=== PATIENT | female | born 1935 | race Caucasian/White ===

== ENCOUNTER 2017-04-21 10:46 | Inpatient (IN) ==
[2017-04-21 11:55] LABS: URINE CULTURE NEEDED? NO; URINE MICRO REVIEW NEEDED? NO; URINE SOURCE CLEAN CATCH
[2017-04-21 11:59] LABS: BASO% 0.1 % (0.0-0.8); HEMATOCRIT 42.1 % (37.0-47.0); HEMOGLOBIN 13.4 g/dL (12.0-16.0); IMM GRAN# 0.03 X1000 (0.0-0.04); IMM GRAN% 0.2 % (0.0-0.5); LYMPH% 7.7 % (20.5-51.1); MANUAL DIFF NEEDED? NO; MCH 28.8 PG (27-31); MCHC 31.8 g/dL (33-37); MCV 90.5 FL (81-99); MONO# 0.49 X1000 (0.11-0.59); MONO% 3.8 % (1.7-9.3); MPV 10.3 FL (7.4-10.4); NEUT% 88.2 % (42.2-75.2); PLT 302 X1000 (130-400); RBC 4.65 XMIL (4.2-5.4)
[2017-04-21 12:00] LABS: BILIRUBIN URINE NEGATIVE (NEGATIVE); BLOOD URINE NEGATIVE (NEGATIVE); COLOR YELLOW; GLUCOSE URINE NEGATIVE (NEGATIVE); LEUKOCYTES URINE NEGATIVE (NEGATIVE); NITRITE URINE NEGATIVE (NEGATIVE); PH URINE 5.5; PROTEIN URINE 50 mg/dL (NEGATIVE); SP GRAVITY URINE 1.026; TURBIDITY URINE CLEAR (CLEAR); UROBILINOGEN URINE 2 mg/dL (NORMAL)
[2017-04-21 12:01] LABS: UR EPITHELIAL CELLS <10 /HPF (<10); URINE BACTERIA NEGATIVE /HPF; URINE RBC <10 /HPF (<10); URINE WBC <10 /HPF (<10)
[2017-04-21] MEDS ORDERED: MORPHINE IV ONE (12:10)
[2017-04-21] MEDS ORDERED: ZOFRAN IV ONE ×2 (12:11→14:43)
[2017-04-21] MEDS ORDERED: NS 250 ML IV ONE (12:11)
[2017-04-21 12:18] LABS: ALBUMIN 3.8 g/dL (3.5-5.0); CALCIUM 10.4 mg/dL (8.8-10.2); POTASSIUM 3.7 mmol/L (3.5-5.1); TOTAL BILIRUBIN 0.39 mg/dL (0.20-1.00); TOTAL PROTEIN 7.6 g/dL (6.3-8.3)
[2017-04-21] MEDS ORDERED: ZOSYN 3.375 GM in NS 50 ML IV ONE (12:40)
[2017-04-21] MEDS ORDERED: DILAUDID IV ONE (14:43)
[2017-04-21] MEDS ORDERED: DILAUDID ONE (15:04)
[2017-04-21] MEDS: LOVENOX SUBQ SCH (18:23)
[2017-04-21] MEDS ORDERED: ELIQUIS PO SCH (21:00)
[2017-04-21] MEDS: CORDARONE PO SCH (22:00)
[2017-04-21] MEDS: D5 1/2 NS + KCL 20 MEQ 1,000 ML IV SCH (22:05)
[2017-04-21] MEDS: COMBIGAN OPHTH SOLN BOTH EYES SCH (22:05)
[2017-04-22] MEDS ORDERED: DEMEROL IV PRN (02:50)
[2017-04-22] MEDS: ZOFRAN IV PRN (02:58)
[2017-04-22 05:52] LABS: INR 1.01; PROTIME 10.6 Seconds (9.2-11.7)
[2017-04-22 06:04] LABS: AMYLASE 342 U/L (20-200); LIPASE 263 U/L (13-60)
[2017-04-22 06:05] LABS: ALBUMIN 3.8 g/dL (3.5-5.0); CALCIUM 9.5 mg/dL (8.8-10.2); POTASSIUM 4.2 mmol/L (3.5-5.1); TOTAL BILIRUBIN 0.39 mg/dL (0.20-1.00); TOTAL PROTEIN 7.3 g/dL (6.3-8.3)
[2017-04-22] MEDS: PROTONIX PO SCH (06:06)
[2017-04-22 06:08] LABS: HEMATOCRIT 41.1 % (37.0-47.0); HEMOGLOBIN 13.2 g/dL (12.0-16.0); IMM GRAN# 0.04 X1000 (0.0-0.04); IMM GRAN% 0.4 % (0.0-0.5); LYMPH# 0.93 X1000 (1.2-3.4); LYMPH% 8.4 % (20.5-51.1); MANUAL DIFF NEEDED? YES; MCH 29.6 PG (27-31); MCHC 32.1 g/dL (33-37); MCV 92.2 FL (81-99); MONO# 0.58 X1000 (0.11-0.59); MONO% 5.2 % (1.7-9.3); MPV 10.6 FL (7.4-10.4); PLT 232 X1000 (130-400); RBC 4.46 XMIL (4.2-5.4)
[2017-04-22] MEDS: DILAUDID IV PRN (06:56)
[2017-04-22 07:06] LABS: LYMPHS 5 % (21-51); MONO 2 % (1-9)
[2017-04-22] MEDS: LOPRESSOR PO SCH (09:22)
[2017-04-22] MEDS: COMBIGAN OPHTH SOLN BOTH EYES SCH ×2 (09:22→22:53)
[2017-04-22] MEDS: CORDARONE PO SCH ×2 (09:22→22:51)
[2017-04-22] MEDS: D5 1/2 NS + KCL 20 MEQ 1,000 ML IV SCH ×2 (09:24→22:54)
[2017-04-22] MEDS ORDERED: FENTANYL ONE (12:21)
[2017-04-22] MEDS ORDERED: SODIUM CHLORIDE 0.9% 20 ML ONE (12:30)
[2017-04-22] MEDS ORDERED: MARCAINE 0.25% PF ONE (12:30)
[2017-04-22] MEDS ORDERED: EXPAREL 1.3% ONE (12:31)
[2017-04-22] MEDS ORDERED: KEFZOL 1 GM/D5W 1 GM/50 ML IVPB ONE (12:37)
[2017-04-22] MEDS ORDERED: QUELICIN (DOSE) ONE (13:28)
[2017-04-22] MEDS ORDERED: ZOFRAN ONE (13:28)
[2017-04-22] MEDS ORDERED: OFIRMEV 1000 MG/ISOTONIC SOLN 1,000 MG/100 ML BOTTLE ONE (13:28)
[2017-04-22] MEDS ORDERED: NEO-SYNEPHRINE ONE (13:28)
[2017-04-22] MEDS ORDERED: NORCURON ONE (13:28)
[2017-04-22] MEDS ORDERED: STERILE WATER INJ. ONE (13:28)
[2017-04-22] MEDS ORDERED: AMIDATE ONE (13:29)
[2017-04-22] MEDS ORDERED: XYLOCAINE-MPF 2% ONE (13:29)
[2017-04-22] MEDS ORDERED: NEOSTIGMINE ONE (13:29)
[2017-04-22] MEDS ORDERED: KETAMINE ONE (13:38)
[2017-04-22] MEDS ORDERED: EPHEDRINE ONE (13:54)
[2017-04-22] MEDS ORDERED: ALBUMIN 25% IV ONE (14:00)
[2017-04-22] MEDS ORDERED: DECADRON ONE (14:21)
[2017-04-22] MEDS ORDERED: ROBINUL ONE (15:01)
[2017-04-22] MEDS: PERIDEX MT SCH (22:52)
[2017-04-22] MEDS: LOVENOX SUBQ SCH (22:52)
[2017-04-23] MEDS: PROTONIX PO SCH (06:41)
[2017-04-23] MEDS: D5 1/2 NS + KCL 20 MEQ 1,000 ML IV SCH ×3 (09:30→22:37)
[2017-04-23] MEDS: PERIDEX MT SCH ×2 (10:21→22:38)
[2017-04-23] MEDS: COMBIGAN OPHTH SOLN BOTH EYES SCH ×2 (10:21→22:38)
[2017-04-23] MEDS: CORDARONE PO SCH ×2 (10:21→22:37)
[2017-04-23] MEDS: LOPRESSOR PO SCH (10:21)
[2017-04-23] MEDS ORDERED: NS 500 ML IV SCH (15:05)
[2017-04-23 16:25] LABS: ALBUMIN 2.2 g/dL (3.5-5.0); POTASSIUM 4.7 mmol/L (3.5-5.1); TOTAL BILIRUBIN 0.36 mg/dL (0.20-1.00); TOTAL PROTEIN 4.8 g/dL (6.3-8.3)
[2017-04-23 16:34] LABS: CALCIUM 8.1 mg/dL (8.8-10.2)
[2017-04-23] MEDS ORDERED: NS 500 ML IV ONE (16:53)
[2017-04-23] MEDS: LOVENOX SUBQ SCH (22:38)
[2017-04-24] MEDS: D5 1/2 NS + KCL 20 MEQ 1,000 ML IV SCH ×3 (05:28→23:24)
[2017-04-24] MEDS: PROTONIX PO SCH ×2 (05:28→10:04)
[2017-04-24 08:31] LABS: AMYLASE 66 U/L (20-200); LIPASE 10 U/L (13-60)
[2017-04-24 08:34] LABS: ALBUMIN 2.2 g/dL (3.5-5.0); CALCIUM 8.3 mg/dL (8.8-10.2); TOTAL BILIRUBIN 0.27 mg/dL (0.20-1.00); TOTAL PROTEIN 4.2 g/dL (6.3-8.3)
[2017-04-24 08:36] LABS: HEMATOCRIT 31.9 % (37.0-47.0); HEMOGLOBIN 9.9 g/dL (12.0-16.0); IMM GRAN# 0.05 X1000 (0.0-0.04); IMM GRAN% 0.4 % (0.0-0.5); LYMPH% 3.7 % (20.5-51.1); MANUAL DIFF NEEDED? YES; MCH 29.1 PG (27-31); MCV 93.8 FL (81-99); MONO# 1.02 X1000 (0.11-0.59); MONO% 7.5 % (1.7-9.3); MPV 10.5 FL (7.4-10.4); NEUT% 88.4 % (42.2-75.2); PLT 208 X1000 (130-400)
[2017-04-24 08:38] LABS: BANDS 10 % (0-1); LYMPHS 4 % (21-51); MONO 6 % (1-9)
[2017-04-24] MEDS: LOPRESSOR PO SCH (10:04)
[2017-04-24] MEDS: CORDARONE PO SCH ×2 (10:04→23:17)
[2017-04-24] MEDS: PERIDEX MT SCH (10:04)
[2017-04-24] MEDS: COMBIGAN OPHTH SOLN BOTH EYES SCH ×2 (10:04→23:18)
[2017-04-24] MEDS: LOVENOX SUBQ SCH (23:17)
[2017-04-25] MEDS: PROTONIX PO SCH (06:03)
[2017-04-25] MEDS: D5 1/2 NS + KCL 20 MEQ 1,000 ML IV SCH (06:03)
[2017-04-25] MEDS: PERIDEX MT SCH ×3 (06:04→20:26)
[2017-04-25] MEDS ORDERED: D5 1/2 NS + KCL 20 MEQ 1,000 ML IV SCH (07:24)
[2017-04-25] MEDS: COMBIGAN OPHTH SOLN BOTH EYES SCH ×2 (09:27→20:26)
[2017-04-25] MEDS: CORDARONE PO SCH (09:27)
[2017-04-25] MEDS: LOPRESSOR PO SCH (09:27)
[2017-04-25] MEDS ORDERED: CALCIUM CHLORIDE SYRINGE ONE (10:00)
[2017-04-25] MEDS ORDERED: EPINEPHRINE SYRINGE ONE (10:00)
[2017-04-25] MEDS ORDERED: CLINDAMYCIN 600 MG/NS 600 MG/50 ML IVPB IV ONE (11:22)
[2017-04-25] MEDS: ZOSYN 3.375 GM in NS 50 ML IV SCH ×2 (11:49→16:43)
[2017-04-25 11:58] LABS: CALCIUM 10.4 mg/dL (8.8-10.2); MAGNESIUM 2.1 mg/dL (1.5-2.7); POTASSIUM 5.8 mmol/L (3.5-5.1); TOTAL BILIRUBIN 0.36 mg/dL (0.20-1.00); TOTAL PROTEIN 4.8 g/dL (6.3-8.3)
[2017-04-25 12:01] LABS: BASO% 0.7 % (0.0-0.8); EOS# 0.01 X1000 (0.0-0.7); EOS% 0.1 % (0.0-10.0); HEMATOCRIT 33.3 % (37.0-47.0); HEMOGLOBIN 10.1 g/dL (12.0-16.0); IMM GRAN# 0.27 X1000 (0.0-0.04); IMM GRAN% 3.7 % (0.0-0.5); LYMPH# 1.29 X1000 (1.2-3.4); LYMPH% 17.8 % (20.5-51.1); MANUAL DIFF NEEDED? YES; MCH 29.3 PG (27-31); MCHC 30.3 g/dL (33-37); MCV 96.5 FL (81-99); MONO# 0.31 X1000 (0.11-0.59); MONO% 4.3 % (1.7-9.3); MPV 10.5 FL (7.4-10.4); NEUT% 73.4 % (42.2-75.2); PLT 178 X1000 (130-400); RBC 3.45 XMIL (4.2-5.4)
[2017-04-25] MEDS ORDERED: NEO-SYNEPHRINE IV ONE (12:26)
[2017-04-25 12:43] LABS: ALLEN TEST YES; BE -3.8 mmoll (-3.0-3.0); BLOOD TYPE ARTERIAL; DRAW SITE L RADIAL; O2(CT) 12.7 mL/dL (15.0-23.0); PCO2(98.6) 39 mmHg (35-45); PO2(98.6) 50 mmHg (60-100); SAMPLE BLOOD; SAO2 90.2 % (95.0-100.0); SRATE 14 BPM; THB 10.3 g/dL (11.5-17.4); TVOL 600 mL; pH(98.6) 7.35 (7.35-7.45)
[2017-04-25 12:45] LABS: MODALITY VENTILATOR
[2017-04-25 12:47] LABS: BANDS 16 % (0-1); LYMPHS 16 % (21-51)
[2017-04-25 12:48] LABS: HYPOCHROM 1+
[2017-04-25] MEDS: LEVOPHED 8 MG in D5 1/2 NS 250 ML IV SCH (12:50)
[2017-04-25] MEDS ORDERED: NEO-SYNEPHRINE 50 MG in NS 250 ML IV SCH (13:00)
[2017-04-25] MEDS: CLINDAMYCIN 600 MG/NS 600 MG/50 ML IVPB IV SCH ×2 (13:01→19:57)
[2017-04-25] MEDS ORDERED: LOVENOX SUBQ ONE (13:20)
[2017-04-25] MEDS ORDERED: LOVENOX SUBQ SCH (13:30)
[2017-04-25] MEDS: DUONEB (A & A) INH SCH ×3 (16:27→23:40)
[2017-04-25] MEDS: LOVENOX SUBQ SCH (16:44)
[2017-04-25 18:51] LABS: URINE SOURCE CATH
[2017-04-25 18:57] LABS: BILIRUBIN URINE NEGATIVE (NEGATIVE); BLOOD URINE LARGE (NEGATIVE); COLOR ORANGE; GLUCOSE URINE TRACE mg/dL (NEGATIVE); LEUKOCYTES URINE NEGATIVE (NEGATIVE); NITRITE URINE NEGATIVE (NEGATIVE); PROTEIN URINE 200 mg/dL (NEGATIVE); SP GRAVITY URINE 1.036; TURBIDITY URINE TURBID (CLEAR); UROBILINOGEN URINE NORMAL (NORMAL)
[2017-04-25 19:00] LABS: UR EPITHELIAL CELLS >10 /HPF (<10); URINE BACTERIA NEGATIVE /HPF; URINE CULTURE NEEDED? YES; URINE MICRO REVIEW NEEDED? YES; URINE RBC TNTC /HPF (<10); URINE WBC TNTC /HPF (<10)
[2017-04-25 19:07] LABS: URINE CASTS NONE SEEN
[2017-04-25] MEDS ORDERED: LASIX IV ONE (20:52)
[2017-04-25] MEDS ORDERED: NS 500 ML IV ONE (20:52)
[2017-04-25] MEDS ORDERED: NS 500 ML ONE (21:03)
[2017-04-25] MEDS: D5 NS 1,000 ML IV SCH (21:10)
[2017-04-25] MEDS: SODIUM CHLORIDE 0.9% INJ SCH (21:10)
[2017-04-25] MEDS: PROTONIX IV SCH (21:10)
[2017-04-26] MEDS: ZOSYN 3.375 GM in NS 50 ML IV SCH ×4 (00:03→16:30)
[2017-04-26] MEDS: LEVOPHED 8 MG in D5 1/2 NS 250 ML IV SCH (01:48)
[2017-04-26] MEDS: DUONEB (A & A) INH SCH ×6 (02:48→22:45)
[2017-04-26] MEDS: LOVENOX SUBQ SCH ×2 (03:33→16:30)
[2017-04-26] MEDS: CLINDAMYCIN 600 MG/NS 600 MG/50 ML IVPB IV SCH ×3 (03:33→19:59)
[2017-04-26 04:49] LABS: ALLEN TEST YES; BE -1.8 mmoll (-3.0-3.0); BLOOD TYPE ARTERIAL; DRAW SITE R RADIAL; O2(CT) 17.5 mL/dL (15.0-23.0); PCO2(98.6) 34 mmHg (35-45); PO2(98.6) 67 mmHg (60-100); SAMPLE BLOOD; SAO2 95.7 % (95.0-100.0); SRATE 14 BPM; THB 13.4 g/dL (11.5-17.4); TVOL 600 mL; pH(98.6) 7.42 (7.35-7.45)
[2017-04-26 04:51] LABS: MODALITY VENTILATOR
[2017-04-26 05:11] LABS: BASO% 0.1 % (0.0-0.8); EOS# 0.05 X1000 (0.0-0.7); EOS% 0.3 % (0.0-10.0); HEMATOCRIT 28.1 % (37.0-47.0); IMM GRAN# 0.13 X1000 (0.0-0.04); IMM GRAN% 0.8 % (0.0-0.5); LYMPH# 1.09 X1000 (1.2-3.4); LYMPH% 7.1 % (20.5-51.1); MANUAL DIFF NEEDED? YES; MCV 90.6 FL (81-99); MONO% 5.8 % (1.7-9.3); MPV 10.2 FL (7.4-10.4); NEUT% 85.9 % (42.2-75.2); PLT 211 X1000 (130-400)
[2017-04-26 05:53] LABS: MAGNESIUM 1.7 mg/dL (1.5-2.7)
[2017-04-26 06:36] LABS: ALBUMIN 1.6 g/dL (3.5-5.0); TOTAL BILIRUBIN 0.93 mg/dL (0.20-1.00); TOTAL PROTEIN 3.7 g/dL (6.3-8.3)
[2017-04-26 06:47] LABS: CALCIUM 7.9 mg/dL (8.8-10.2)
[2017-04-26 07:08] LABS: BANDS 12 % (0-1); LYMPHS 8 % (21-51); MONO 6 % (1-9); NRBC 1 % (0-0)
[2017-04-26] MEDS: COMBIGAN OPHTH SOLN BOTH EYES SCH ×2 (10:40→19:59)
[2017-04-26] MEDS: PERIDEX MT SCH ×2 (10:41→19:59)
[2017-04-26] MEDS: D5 NS 1,000 ML IV SCH (12:16)
[2017-04-26] MEDS: SODIUM CHLORIDE 0.9% INJ SCH (19:59)
[2017-04-26] MEDS: PROTONIX IV SCH (19:59)
[2017-04-27] MEDS: ZOSYN 3.375 GM in NS 50 ML IV SCH ×4 (00:02→18:28)
[2017-04-27] MEDS: DILAUDID IV PRN (00:17)
[2017-04-27] MEDS: D5 NS 1,000 ML IV SCH (02:39)
[2017-04-27] MEDS: CLINDAMYCIN 600 MG/NS 600 MG/50 ML IVPB IV SCH ×3 (02:39→18:42)
[2017-04-27] MEDS: DUONEB (A & A) INH SCH ×6 (03:00→22:58)
[2017-04-27] MEDS: LOVENOX SUBQ SCH ×2 (03:39→15:16)
[2017-04-27 04:41] LABS: ALLEN TEST YES; BE -0.2 mmoll (-3.0-3.0); BLOOD TYPE ARTERIAL; DRAW SITE R RADIAL; METHB 1.7 % (0.0-1.5); O2(CT) 10.3 mL/dL (15.0-23.0); PCO2(98.6) 35 mmHg (35-45); PO2(98.6) 84 mmHg (60-100); SAMPLE BLOOD; SRATE 14 BPM; THB 7.6 g/dL (11.5-17.4); TVOL 600 mL; pH(98.6) 7.44 (7.35-7.45)
[2017-04-27 04:42] LABS: MODALITY VENTILATOR
[2017-04-27 06:28] LABS: ALBUMIN 1.5 g/dL (3.5-5.0); CALCIUM 7.4 mg/dL (8.8-10.2); POTASSIUM 3.4 mmol/L (3.5-5.1); TOTAL BILIRUBIN 0.56 mg/dL (0.20-1.00); TOTAL PROTEIN 3.4 g/dL (6.3-8.3)
[2017-04-27] MEDS ORDERED: POTASSIUM CHLORIDE 40 MEQ/SWI 40 MEQ/100 ML IVPB IV ONE (06:58)
[2017-04-27] MEDS: PERIDEX MT SCH ×2 (09:36→20:02)
[2017-04-27] MEDS: COMBIGAN OPHTH SOLN BOTH EYES SCH ×2 (09:36→20:03)
[2017-04-27] MEDS: D5 1/4 NS 1,000 ML IV SCH (13:20)
[2017-04-27] MEDS: ALBUMIN 25% IV SCH ×2 (14:30→18:42)
[2017-04-27] MEDS: LASIX IV SCH ×2 (15:15→19:44)
[2017-04-27] MEDS: PROTONIX IV SCH (20:02)
[2017-04-27] MEDS: DIFLUCAN 100 MG/NS 100 MG/50 ML IVPB IV SCH (20:35)
[2017-04-28] MEDS: ALBUMIN 25% IV SCH (01:12)
[2017-04-28] MEDS: LASIX IV SCH ×3 (02:17→17:26)
[2017-04-28] MEDS: DUONEB (A & A) INH SCH ×6 (02:58→23:04)
[2017-04-28] MEDS: CLINDAMYCIN 600 MG/NS 600 MG/50 ML IVPB IV SCH ×3 (02:58→20:10)
[2017-04-28] MEDS: DILAUDID IV PRN ×3 (02:59→22:59)
[2017-04-28] MEDS: LOVENOX SUBQ SCH (03:10)
[2017-04-28] MEDS: D5 1/4 NS 1,000 ML IV SCH (04:19)
[2017-04-28] MEDS: ZOSYN 3.375 GM in NS 50 ML IV SCH ×6 (04:31→22:59)
[2017-04-28 04:37] LABS: ALLEN TEST YES; BE 2.7 mmoll (-3.0-3.0); BLOOD TYPE ARTERIAL; DRAW SITE R RADIAL; METHB 1.3 % (0.0-1.5); O2(CT) 14.9 mL/dL (15.0-23.0); PCO2(98.6) 33 mmHg (35-45); PO2(98.6) 102 mmHg (60-100); SAMPLE BLOOD; SAO2 98.9 % (95.0-100.0); SRATE 14 BPM; THB 10.9 g/dL (11.5-17.4); TVOL 600 mL
[2017-04-28 04:38] LABS: MODALITY VENTILATOR
[2017-04-28 06:31] LABS: HEMATOCRIT 19.3 % (37.0-47.0); HEMOGLOBIN 6.3 g/dL (12.0-16.0); MCH 29.7 PG (27-31); MCHC 32.6 g/dL (33-37); RBC 2.12 XMIL (4.2-5.4)
[2017-04-28 06:50] LABS: ALBUMIN 2.7 g/dL (3.5-5.0); CALCIUM 7.9 mg/dL (8.8-10.2); MAGNESIUM 1.7 mg/dL (1.5-2.7); TOTAL BILIRUBIN 0.99 mg/dL (0.20-1.00)
[2017-04-28 06:51] LABS: POTASSIUM 2.5 mmol/L (3.5-5.1)
[2017-04-28] MEDS: POTASSIUM CHLORIDE 20 MEQ/SWI 20 MEQ/100 ML IVPB IV SCH ×4 (07:00→17:27)
[2017-04-28] MEDS ORDERED: NS 250 ML ONE (08:39)
[2017-04-28] MEDS: PERIDEX MT SCH ×2 (08:41→22:57)
[2017-04-28] MEDS: COMBIGAN OPHTH SOLN BOTH EYES SCH ×2 (08:41→20:11)
[2017-04-28] MEDS: D5W 1,000 ML IV SCH (10:50)
[2017-04-28] MEDS: DIFLUCAN 100 MG/NS 100 MG/50 ML IVPB IV SCH (20:10)
[2017-04-28] MEDS: SODIUM CHLORIDE 0.9% INJ SCH (20:11)
[2017-04-28] MEDS: PROTONIX IV SCH (20:11)
[2017-04-29] MEDS: D5W 1,000 ML IV SCH ×2 (01:41→16:19)
[2017-04-29] MEDS: LASIX IV SCH ×5 (01:41→22:08)
[2017-04-29] MEDS: CLINDAMYCIN 600 MG/NS 600 MG/50 ML IVPB IV SCH ×3 (02:30→19:12)
[2017-04-29] MEDS: DUONEB (A & A) INH SCH ×6 (03:01→23:15)
[2017-04-29 04:07] LABS: ALLEN TEST YES; BE 7.4 mmoll (-3.0-3.0); BLOOD TYPE ARTERIAL; DRAW SITE R RADIAL; METHB 1.3 % (0.0-1.5); O2(CT) 13.8 mL/dL (15.0-23.0); PCO2(98.6) 40 mmHg (35-45); PO2(98.6) 71 mmHg (60-100); SAMPLE BLOOD; SAO2 97.6 % (95.0-100.0); SRATE 10 BPM; THB 10.3 g/dL (11.5-17.4); TVOL 600 mL
[2017-04-29 04:09] LABS: MODALITY VENTILATOR
[2017-04-29] MEDS: ZOSYN 3.375 GM in NS 50 ML IV SCH ×3 (04:36→17:09)
[2017-04-29 05:54] LABS: HEMATOCRIT 29.1 % (37.0-47.0); HEMOGLOBIN 9.9 g/dL (12.0-16.0); MCH 30.5 PG (27-31); MCV 89.5 FL (81-99); MPV 10.8 FL (7.4-10.4); RBC 3.25 XMIL (4.2-5.4)
[2017-04-29 05:59] LABS: ALBUMIN 2.5 g/dL (3.5-5.0); CALCIUM 7.6 mg/dL (8.8-10.2); POTASSIUM 2.7 mmol/L (3.5-5.1); TOTAL BILIRUBIN 0.93 mg/dL (0.20-1.00); TOTAL PROTEIN 5.1 g/dL (6.3-8.3)
[2017-04-29] MEDS: DILAUDID IV PRN ×3 (06:15→23:24)
[2017-04-29] MEDS: POTASSIUM CHLORIDE 40 MEQ/SWI 40 MEQ/100 ML IVPB IV SCH ×2 (07:53→16:19)
[2017-04-29] MEDS: COMBIGAN OPHTH SOLN BOTH EYES SCH ×3 (07:53→20:17)
[2017-04-29] MEDS: PERIDEX MT SCH ×2 (10:58→20:17)
[2017-04-29] MEDS: LOVENOX SUBQ SCH (11:04)
[2017-04-29] MEDS: DIFLUCAN 100 MG/NS 100 MG/50 ML IVPB IV SCH (20:15)
[2017-04-29] MEDS: PROTONIX IV SCH (21:15)
[2017-04-29] MEDS: SODIUM CHLORIDE 0.9% INJ SCH (21:15)
[2017-04-30] MEDS: ZOSYN 3.375 GM in NS 50 ML IV SCH ×5 (00:29→23:03)
[2017-04-30] MEDS: CLINDAMYCIN 600 MG/NS 600 MG/50 ML IVPB IV SCH ×3 (03:01→18:38)
[2017-04-30] MEDS: DUONEB (A & A) INH SCH ×6 (03:36→23:21)
[2017-04-30 04:33] LABS: ALLEN TEST YES; BE 8.4 mmoll (-3.0-3.0); BLOOD TYPE ARTERIAL; DRAW SITE R RADIAL; O2(CT) 14.1 mL/dL (15.0-23.0); PCO2(98.6) 44 mmHg (35-45); PO2(98.6) 72 mmHg (60-100); SAMPLE BLOOD; SAO2 97.2 % (95.0-100.0); SRATE 4 BPM; THB 10.6 g/dL (11.5-17.4); TVOL 600 mL; pH(98.6) 7.48 (7.35-7.45)
[2017-04-30 04:36] LABS: MODALITY VENTILATOR
[2017-04-30] MEDS: LASIX IV SCH (05:06)
[2017-04-30 05:11] LABS: HEMOGLOBIN 10.5 g/dL (12.0-16.0); MCH 30.3 PG (27-31); MCHC 33.9 g/dL (33-37); MCV 89.3 FL (81-99); MPV 11.1 FL (7.4-10.4); RBC 3.47 XMIL (4.2-5.4)
[2017-04-30 07:29] LABS: ALBUMIN 2.3 g/dL (3.5-5.0); CALCIUM 7.9 mg/dL (8.8-10.2); POTASSIUM 3.2 mmol/L (3.5-5.1); TOTAL BILIRUBIN 0.85 mg/dL (0.20-1.00); TOTAL PROTEIN 5.1 g/dL (6.3-8.3)
[2017-04-30] MEDS: PERIDEX MT SCH ×2 (09:27→20:21)
[2017-04-30] MEDS: COMBIGAN OPHTH SOLN BOTH EYES SCH ×2 (09:27→20:24)
[2017-04-30] MEDS: D5W 1,000 ML IV SCH (09:27)
[2017-04-30] MEDS: LOVENOX SUBQ SCH (09:27)
[2017-04-30] MEDS ORDERED: POTASSIUM CHLORIDE 40 MEQ/SWI 40 MEQ/100 ML IVPB IV ONE (11:03)
[2017-04-30] MEDS: DIFLUCAN 100 MG/NS 100 MG/50 ML IVPB IV SCH (19:08)
[2017-04-30] MEDS: PROTONIX IV SCH (20:21)
[2017-04-30] MEDS: SODIUM CHLORIDE 0.9% INJ SCH (20:21)
[2017-05-01] MEDS: D5W 1,000 ML IV SCH ×2 (00:27→16:59)
[2017-05-01] MEDS: CLINDAMYCIN 600 MG/NS 600 MG/50 ML IVPB IV SCH ×5 (03:16→18:34)
[2017-05-01] MEDS: DUONEB (A & A) INH SCH ×6 (03:53→23:24)
[2017-05-01 05:05] LABS: ALLEN TEST YES; BE 3.5 mmoll (-3.0-3.0); BLOOD TYPE ARTERIAL; DRAW SITE R RADIAL; METHB 0.9 % (0.0-1.5); MODALITY VENTILATOR; O2(CT) 26.5 mL/dL (15.0-23.0); PCO2(98.6) 48 mmHg (35-45); PO2(98.6) 73 mmHg (60-100); SAMPLE BLOOD; SRATE 4 BPM; THB 20.2 g/dL (11.5-17.4); TVOL 600 mL
[2017-05-01 05:13] LABS: HEMATOCRIT 32.4 % (37.0-47.0); MCH 30.2 PG (27-31); MPV 10.9 FL (7.4-10.4); RBC 3.64 XMIL (4.2-5.4)
[2017-05-01] MEDS: ZOSYN 3.375 GM in NS 50 ML IV SCH ×4 (05:25→16:58)
[2017-05-01 05:34] LABS: ALBUMIN 2.3 g/dL (3.5-5.0); POTASSIUM 3.5 mmol/L (3.5-5.1); TOTAL BILIRUBIN 0.67 mg/dL (0.20-1.00); TOTAL PROTEIN 5.6 g/dL (6.3-8.3)
[2017-05-01] MEDS: PERIDEX MT SCH ×2 (10:06→20:10)
[2017-05-01] MEDS: COMBIGAN OPHTH SOLN BOTH EYES SCH ×2 (10:21→20:06)
[2017-05-01] MEDS: REGLAN IV SCH ×3 (10:22→20:06)
[2017-05-01] MEDS: LOVENOX SUBQ SCH (10:23)
[2017-05-01] MEDS: DILAUDID IV PRN ×2 (13:56→23:10)
[2017-05-01] MEDS: LASIX IV SCH (13:56)
[2017-05-01] MEDS: ATIVAN IV PRN (14:50)
[2017-05-01] MEDS: DIFLUCAN 100 MG/NS 100 MG/50 ML IVPB IV SCH (19:36)
[2017-05-01] MEDS: PROTONIX IV SCH (20:06)
[2017-05-01] MEDS: SODIUM CHLORIDE 0.9% INJ SCH (20:06)
[2017-05-02] MEDS: ZOSYN 3.375 GM in NS 50 ML IV SCH ×5 (00:01→23:43)
[2017-05-02] MEDS: LASIX IV SCH (00:02)
[2017-05-02] MEDS: REGLAN IV SCH (03:03)
[2017-05-02] MEDS: CLINDAMYCIN 600 MG/NS 600 MG/50 ML IVPB IV SCH ×3 (03:03→19:50)
[2017-05-02] MEDS: DUONEB (A & A) INH SCH ×6 (03:26→23:20)
[2017-05-02 04:51] LABS: ALLEN TEST YES; BE 8.3 mmoll (-3.0-3.0); BLOOD TYPE ARTERIAL; DRAW SITE R RADIAL; METHB 1.3 % (0.0-1.5); O2(CT) 18.2 mL/dL (15.0-23.0); PCO2(98.6) 50 mmHg (35-45); PO2(98.6) 84 mmHg (60-100); SAMPLE BLOOD; SRATE 4 BPM; THB 13.6 g/dL (11.5-17.4); TVOL 600 mL; pH(98.6) 7.44 (7.35-7.45)
[2017-05-02 04:52] LABS: MODALITY VENTILATOR
[2017-05-02] MEDS: D5W 1,000 ML IV SCH ×3 (05:05→18:44)
[2017-05-02 05:13] LABS: HEMATOCRIT 30.4 % (37.0-47.0); HEMOGLOBIN 10.1 g/dL (12.0-16.0); MCHC 33.2 g/dL (33-37); MCV 90.2 FL (81-99); MPV 10.7 FL (7.4-10.4); RBC 3.37 XMIL (4.2-5.4)
[2017-05-02 05:44] LABS: MAGNESIUM 1.6 mg/dL (1.5-2.7)
[2017-05-02 05:59] LABS: ALBUMIN 2.2 g/dL (3.5-5.0); CALCIUM 7.4 mg/dL (8.8-10.2); POTASSIUM 2.8 mmol/L (3.5-5.1); TOTAL BILIRUBIN 0.45 mg/dL (0.20-1.00); TOTAL PROTEIN 4.1 g/dL (6.3-8.3)
[2017-05-02] MEDS: PERIDEX MT SCH ×2 (08:18→20:00)
[2017-05-02] MEDS: COMBIGAN OPHTH SOLN BOTH EYES SCH ×2 (08:18→20:01)
[2017-05-02] MEDS: LOVENOX SUBQ SCH (08:18)
[2017-05-02] MEDS ORDERED: POTASSIUM CHLORIDE 40 MEQ/SWI 40 MEQ/100 ML IVPB IV ONE (11:55)
[2017-05-02] MEDS: ATIVAN IV PRN ×2 (14:23→21:29)
[2017-05-02] MEDS ORDERED: ZOSYN ONE (16:58)
[2017-05-02] MEDS: DIFLUCAN 100 MG/NS 100 MG/50 ML IVPB IV SCH (19:50)
[2017-05-02] MEDS: PROTONIX IV SCH (20:00)
[2017-05-02] MEDS: SODIUM CHLORIDE 0.9% INJ SCH (20:00)
[2017-05-03] MEDS: DUONEB (A & A) INH SCH ×6 (03:15→22:57)
[2017-05-03] MEDS: CLINDAMYCIN 600 MG/NS 600 MG/50 ML IVPB IV SCH ×3 (03:28→19:46)
[2017-05-03 04:46] LABS: ALLEN TEST YES; BE 10.9 mmoll (-3.0-3.0); BLOOD TYPE ARTERIAL; DRAW SITE R RADIAL; METHB 1.2 % (0.0-1.5); O2(CT) 14.1 mL/dL (15.0-23.0); PCO2(98.6) 48 mmHg (35-45); PO2(98.6) 141 mmHg (60-100); SAMPLE BLOOD; SAO2 99.4 % (95.0-100.0); SRATE 4 BPM; THB 10.2 g/dL (11.5-17.4); TVOL 600 mL; pH(98.6) 7.48 (7.35-7.45)
[2017-05-03 04:48] LABS: MODALITY VENTILATOR
[2017-05-03 04:52] LABS: HEMATOCRIT 28.4 % (37.0-47.0); HEMOGLOBIN 9.4 g/dL (12.0-16.0); MCH 30.3 PG (27-31); MCHC 33.1 g/dL (33-37); MCV 91.6 FL (81-99); MPV 10.4 FL (7.4-10.4); RBC 3.1 XMIL (4.2-5.4)
[2017-05-03] MEDS: ZOSYN 3.375 GM in NS 50 ML IV SCH ×4 (05:13→23:37)
[2017-05-03 05:23] LABS: ALBUMIN 1.8 g/dL (3.5-5.0); CALCIUM 7.6 mg/dL (8.8-10.2); POTASSIUM 3.1 mmol/L (3.5-5.1); TOTAL BILIRUBIN 0.46 mg/dL (0.20-1.00); TOTAL PROTEIN 4.8 g/dL (6.3-8.3)
[2017-05-03] MEDS ORDERED: POTASSIUM CHLORIDE 20 MEQ/SWI 20 MEQ/100 ML IVPB IV ONE (07:12)
[2017-05-03] MEDS: PERIDEX MT SCH ×2 (08:04→21:21)
[2017-05-03] MEDS: POTASSIUM CHLORIDE 20 MEQ/SWI 20 MEQ/100 ML IVPB IV SCH ×2 (08:04→10:09)
[2017-05-03] MEDS: LOVENOX SUBQ SCH (08:04)
[2017-05-03] MEDS: COMBIGAN OPHTH SOLN BOTH EYES SCH ×2 (08:04→21:22)
[2017-05-03] MEDS: CLINIMIX E 4.25%-5% SOLUTION 1,000 ML IV SCH (10:30)
[2017-05-03] MEDS: ALBUMIN 25% IV SCH ×2 (10:31→22:41)
[2017-05-03] MEDS: ATIVAN IV PRN (11:30)
[2017-05-03] MEDS ORDERED: NS 500 ML ONE (15:36)
[2017-05-03] MEDS: CALMOSEPTINE OINTMENT TOP PRN (17:48)
[2017-05-03] MEDS: DILAUDID IV PRN (19:33)
[2017-05-03] MEDS: DIFLUCAN 100 MG/NS 100 MG/50 ML IVPB IV SCH (19:46)
[2017-05-03] MEDS: PROTONIX IV SCH (21:21)
[2017-05-04] MEDS: CLINIMIX E 4.25%-5% SOLUTION 1,000 ML IV SCH ×2 (02:34→14:50)
[2017-05-04] MEDS: DUONEB (A & A) INH SCH ×6 (02:57→23:25)
[2017-05-04] MEDS: CLINDAMYCIN 600 MG/NS 600 MG/50 ML IVPB IV SCH ×3 (03:32→19:28)
[2017-05-04] MEDS: ATIVAN IV PRN ×2 (03:36→21:30)
[2017-05-04 04:31] LABS: ALLEN TEST YES; BE 8.2 mmoll (-3.0-3.0); BLOOD TYPE ARTERIAL; DRAW SITE R RADIAL; METHB 0.5 % (0.0-1.5); O2(CT) 13.7 mL/dL (15.0-23.0); PO2(98.6) 98 mmHg (60-100); SAMPLE BLOOD; SAO2 100.5 % (95.0-100.0); SRATE 6 BPM; THB 9.9 g/dL (11.5-17.4); TVOL 600 mL; pH(98.6) 7.39 (7.35-7.45)
[2017-05-04 04:32] LABS: MODALITY VENTILATOR; PCO2(98.6) 57 mmHg (35-45)
[2017-05-04 04:35] LABS: HEMATOCRIT 32.1 % (37.0-47.0); HEMOGLOBIN 10.7 g/dL (12.0-16.0); MCH 29.7 PG (27-31); MCHC 33.3 g/dL (33-37); MCV 89.2 FL (81-99); MPV 10.1 FL (7.4-10.4); RBC 3.6 XMIL (4.2-5.4)
[2017-05-04] MEDS: ZOSYN 3.375 GM in NS 50 ML IV SCH ×4 (05:18→23:11)
[2017-05-04 05:36] LABS: ALBUMIN 2.8 g/dL (3.5-5.0); CALCIUM 8.3 mg/dL (8.8-10.2); POTASSIUM 3.7 mmol/L (3.5-5.1); TOTAL BILIRUBIN 0.53 mg/dL (0.20-1.00); TOTAL PROTEIN 5.4 g/dL (6.3-8.3)
[2017-05-04] MEDS: COMBIGAN OPHTH SOLN BOTH EYES SCH ×2 (08:04→21:29)
[2017-05-04] MEDS: PERIDEX MT SCH ×2 (08:04→21:26)
[2017-05-04] MEDS ORDERED: XYLOCAINE 1%/EPI 1:100,000 ONE (10:09)
[2017-05-04] MEDS: LOVENOX SUBQ SCH (12:03)
[2017-05-04] MEDS: DILAUDID IV PRN (18:07)
[2017-05-04] MEDS: DIFLUCAN 100 MG/NS 100 MG/50 ML IVPB IV SCH (19:28)
[2017-05-04] MEDS: PROTONIX IV SCH (21:26)
[2017-05-05] MEDS ORDERED: LASIX IV ONE ×2 (01:00→23:00)
[2017-05-05] MEDS: DUONEB (A & A) INH SCH ×6 (03:14→22:38)
[2017-05-05] MEDS: CLINDAMYCIN 600 MG/NS 600 MG/50 ML IVPB IV SCH ×3 (03:32→18:49)
[2017-05-05] MEDS: DILAUDID IV PRN ×3 (03:58→21:28)
[2017-05-05] MEDS: ZOSYN 3.375 GM in NS 50 ML IV SCH ×4 (04:54→23:46)
[2017-05-05] MEDS: CLINIMIX E 4.25%-5% SOLUTION 1,000 ML IV SCH ×2 (04:55→18:49)
[2017-05-05 05:07] LABS: ALLEN TEST YES; BE 6.6 mmoll (-3.0-3.0); BLOOD TYPE ARTERIAL; DRAW SITE R RADIAL; METHB 1.2 % (0.0-1.5); O2(CT) 22.5 mL/dL (15.0-23.0); PO2(98.6) 98 mmHg (60-100); SAMPLE BLOOD; SAO2 98.6 % (95.0-100.0); SRATE 4 BPM; THB 16.7 g/dL (11.5-17.4); TVOL 500 mL
[2017-05-05 05:09] LABS: MODALITY VENTILATOR; PCO2(98.6) 54 mmHg (35-45)
[2017-05-05 05:59] LABS: HEMATOCRIT 33.8 % (37.0-47.0); HEMOGLOBIN 11.1 g/dL (12.0-16.0); MCH 30.3 PG (27-31); MCHC 32.8 g/dL (33-37); MCV 92.3 FL (81-99); MPV 10.2 FL (7.4-10.4); RBC 3.66 XMIL (4.2-5.4)
[2017-05-05 06:14] LABS: ALBUMIN 2.8 g/dL (3.5-5.0); CALCIUM 8.1 mg/dL (8.8-10.2); POTASSIUM 3.7 mmol/L (3.5-5.1); TOTAL BILIRUBIN 0.47 mg/dL (0.20-1.00); TOTAL PROTEIN 5.5 g/dL (6.3-8.3)
[2017-05-05] MEDS: COMBIGAN OPHTH SOLN BOTH EYES SCH ×2 (08:07→21:19)
[2017-05-05] MEDS: LOVENOX SUBQ SCH (08:08)
[2017-05-05] MEDS: PERIDEX MT SCH ×2 (08:08→21:17)
[2017-05-05] MEDS: DIFLUCAN 100 MG/NS 100 MG/50 ML IVPB IV SCH (19:38)
[2017-05-05] MEDS: PROTONIX IV SCH (21:17)
[2017-05-05] MEDS: SODIUM CHLORIDE 0.9% INJ SCH (21:17)
[2017-05-06] MEDS: DUONEB (A & A) INH SCH ×6 (02:49→23:51)
[2017-05-06] MEDS: CLINDAMYCIN 600 MG/NS 600 MG/50 ML IVPB IV SCH ×3 (03:28→18:43)
[2017-05-06 04:36] LABS: ALLEN TEST YES; BE 6.6 mmoll (-3.0-3.0); BLOOD TYPE ARTERIAL; DRAW SITE R RADIAL; O2(CT) 20.6 mL/dL (15.0-23.0); PO2(98.6) 84 mmHg (60-100); SAMPLE BLOOD; SAO2 97.5 % (95.0-100.0); SRATE 4 BPM; THB 15.4 g/dL (11.5-17.4); TVOL 500 mL; pH(98.6) 7.37 (7.35-7.45)
[2017-05-06 04:37] LABS: MODALITY VENTILATOR; PCO2(98.6) 59 mmHg (35-45)
[2017-05-06] MEDS: DILAUDID IV PRN (04:39)
[2017-05-06] MEDS: ZOSYN 3.375 GM in NS 50 ML IV SCH ×4 (04:42→23:07)
[2017-05-06 05:32] LABS: HEMATOCRIT 33.5 % (37.0-47.0); MCH 30.1 PG (27-31); MCHC 32.8 g/dL (33-37); MCV 91.5 FL (81-99); MPV 10.1 FL (7.4-10.4); RBC 3.66 XMIL (4.2-5.4)
[2017-05-06 05:55] LABS: ALBUMIN 2.6 g/dL (3.5-5.0); CALCIUM 8.3 mg/dL (8.8-10.2); TOTAL BILIRUBIN 0.42 mg/dL (0.20-1.00); TOTAL PROTEIN 5.8 g/dL (6.3-8.3)
[2017-05-06] MEDS: COMBIGAN OPHTH SOLN BOTH EYES SCH ×2 (08:26→20:19)
[2017-05-06] MEDS: LOVENOX SUBQ SCH (08:26)
[2017-05-06] MEDS: PERIDEX MT SCH ×2 (08:26→20:20)
[2017-05-06] MEDS: CLINIMIX E 4.25%-5% SOLUTION 1,000 ML IV SCH ×2 (09:09→23:09)
[2017-05-06] MEDS: ATIVAN IV PRN ×2 (09:09→14:49)
[2017-05-06] MEDS: ZOFRAN IV PRN ×2 (11:18→15:14)
[2017-05-06] MEDS: REGLAN IV SCH ×2 (15:14→20:19)
[2017-05-06] MEDS: DIFLUCAN 100 MG/NS 100 MG/50 ML IVPB IV SCH (19:26)
[2017-05-06] MEDS: SODIUM CHLORIDE 0.9% INJ SCH (20:19)
[2017-05-06] MEDS: PROTONIX IV SCH (20:19)
[2017-05-07] MEDS: REGLAN IV SCH ×3 (03:18→14:59)
[2017-05-07] MEDS: CLINDAMYCIN 600 MG/NS 600 MG/50 ML IVPB IV SCH ×3 (03:18→20:30)
[2017-05-07] MEDS: DUONEB (A & A) INH SCH ×6 (03:24→23:15)
[2017-05-07 04:16] LABS: ALLEN TEST YES; BE 6.6 mmoll (-3.0-3.0); BLOOD TYPE ARTERIAL; DRAW SITE R RADIAL; METHB 1.3 % (0.0-1.5); O2(CT) 21.1 mL/dL (15.0-23.0); PO2(98.6) 80 mmHg (60-100); SAMPLE BLOOD; SAO2 97.6 % (95.0-100.0); SRATE 4 BPM; THB 15.9 g/dL (11.5-17.4); TVOL 500 mL; pH(98.6) 7.41 (7.35-7.45)
[2017-05-07 04:17] LABS: MODALITY VENTILATOR; PCO2(98.6) 52 mmHg (35-45)
[2017-05-07] MEDS: ZOSYN 3.375 GM in NS 50 ML IV SCH ×3 (04:38→18:47)
[2017-05-07 04:58] LABS: HEMATOCRIT 29.9 % (37.0-47.0); HEMOGLOBIN 9.7 g/dL (12.0-16.0); MCH 30.5 PG (27-31); MCHC 32.4 g/dL (33-37); MPV 10.2 FL (7.4-10.4); RBC 3.18 XMIL (4.2-5.4)
[2017-05-07 05:21] LABS: ALBUMIN 2.2 g/dL (3.5-5.0); CALCIUM 8.4 mg/dL (8.8-10.2); POTASSIUM 3.8 mmol/L (3.5-5.1); TOTAL BILIRUBIN 0.43 mg/dL (0.20-1.00); TOTAL PROTEIN 5.3 g/dL (6.3-8.3)
[2017-05-07] MEDS: COMBIGAN OPHTH SOLN BOTH EYES SCH ×2 (08:28→20:05)
[2017-05-07] MEDS: LOVENOX SUBQ SCH (08:30)
[2017-05-07] MEDS: PERIDEX MT SCH ×2 (08:30→20:05)
[2017-05-07] MEDS ORDERED: LASIX IV ONE (09:05)
[2017-05-07] MEDS: CLINIMIX E 4.25%-5% SOLUTION 1,000 ML IV SCH (13:20)
[2017-05-07] MEDS: DIFLUCAN 100 MG/NS 100 MG/50 ML IVPB IV SCH (19:45)
[2017-05-07] MEDS: PROTONIX IV SCH (20:05)
[2017-05-08] MEDS: ZOSYN 3.375 GM in NS 50 ML IV SCH ×4 (02:20→19:48)
[2017-05-08] MEDS: CLINDAMYCIN 600 MG/NS 600 MG/50 ML IVPB IV SCH ×3 (02:39→19:48)
[2017-05-08] MEDS: DILAUDID IV PRN ×2 (02:43→10:38)
[2017-05-08] MEDS: DUONEB (A & A) INH SCH ×6 (03:05→23:20)
[2017-05-08 04:22] LABS: ALLEN TEST YES; BE 10.3 mmoll (-3.0-3.0); BLOOD TYPE ARTERIAL; DRAW SITE R RADIAL; METHB 1.1 % (0.0-1.5); O2(CT) 14.2 mL/dL (15.0-23.0); PO2(98.6) 91 mmHg (60-100); SAMPLE BLOOD; SAO2 98.3 % (95.0-100.0); SRATE 4 BPM; THB 10.5 g/dL (11.5-17.4); TVOL 500 mL; pH(98.6) 7.38 (7.35-7.45)
[2017-05-08 04:23] LABS: MODALITY VENTILATOR
[2017-05-08 04:25] LABS: PCO2(98.6) 63 mmHg (35-45)
[2017-05-08] MEDS: CLINIMIX E 4.25%-5% SOLUTION 1,000 ML IV SCH ×2 (04:51→18:01)
[2017-05-08 05:48] LABS: HEMATOCRIT 29.9 % (37.0-47.0); HEMOGLOBIN 9.5 g/dL (12.0-16.0); MCH 29.5 PG (27-31); MCHC 31.8 g/dL (33-37); MCV 92.9 FL (81-99); MPV 10.2 FL (7.4-10.4); RBC 3.22 XMIL (4.2-5.4)
[2017-05-08 06:08] LABS: ALBUMIN 2.2 g/dL (3.5-5.0); CALCIUM 8.6 mg/dL (8.8-10.2); POTASSIUM 3.9 mmol/L (3.5-5.1); TOTAL BILIRUBIN 0.39 mg/dL (0.20-1.00); TOTAL PROTEIN 5.4 g/dL (6.3-8.3)
[2017-05-08] MEDS: COMBIGAN OPHTH SOLN BOTH EYES SCH ×2 (08:02→20:15)
[2017-05-08] MEDS: LOVENOX SUBQ SCH (08:02)
[2017-05-08] MEDS: PERIDEX MT SCH ×2 (08:02→20:16)
[2017-05-08] MEDS: DIFLUCAN 100 MG/NS 100 MG/50 ML IVPB IV SCH (19:48)
[2017-05-08] MEDS: PROTONIX IV SCH (20:16)
[2017-05-09] MEDS: ZOSYN 3.375 GM in NS 50 ML IV SCH ×4 (02:30→19:45)
[2017-05-09] MEDS: DILAUDID IV PRN (02:50)
[2017-05-09] MEDS: DUONEB (A & A) INH SCH ×6 (03:20→22:53)
[2017-05-09] MEDS: CLINDAMYCIN 600 MG/NS 600 MG/50 ML IVPB IV SCH ×3 (04:25→18:30)
[2017-05-09 04:50] LABS: ALLEN TEST YES; BE 9.2 mmoll (-3.0-3.0); BLOOD TYPE ARTERIAL; DRAW SITE R RADIAL; O2(CT) 13.3 mL/dL (15.0-23.0); PO2(98.6) 156 mmHg (60-100); SAMPLE BLOOD; SAO2 97.3 % (95.0-100.0); SRATE 4 BPM; THB 9.6 g/dL (11.5-17.4); TVOL 500 mL; pH(98.6) 7.44 (7.35-7.45)
[2017-05-09 04:51] LABS: MODALITY VENTILATOR; PCO2(98.6) 51 mmHg (35-45)
[2017-05-09 06:26] LABS: HEMATOCRIT 31.5 % (37.0-47.0); HEMOGLOBIN 10.1 g/dL (12.0-16.0); MCH 30.4 PG (27-31); MCHC 32.1 g/dL (33-37); MCV 94.9 FL (81-99); MPV 10.3 FL (7.4-10.4); RBC 3.32 XMIL (4.2-5.4)
[2017-05-09 06:41] LABS: ALBUMIN 2.3 g/dL (3.5-5.0); CALCIUM 8.5 mg/dL (8.8-10.2); POTASSIUM 4.2 mmol/L (3.5-5.1); TOTAL BILIRUBIN 0.4 mg/dL (0.20-1.00); TOTAL PROTEIN 5.6 g/dL (6.3-8.3)
[2017-05-09] MEDS: PERIDEX MT SCH ×2 (08:04→20:26)
[2017-05-09] MEDS: COMBIGAN OPHTH SOLN BOTH EYES SCH ×2 (08:04→20:26)
[2017-05-09] MEDS: LOVENOX SUBQ SCH (08:04)
[2017-05-09] MEDS: CLINIMIX E 4.25%-5% SOLUTION 1,000 ML IV SCH (08:15)
[2017-05-09] MEDS ORDERED: LASIX IV SCH (10:00)
[2017-05-09] MEDS: SOLU-CORTEF IV SCH ×2 (10:26→20:27)
[2017-05-09] MEDS: LASIX 160 MG in NS 25 ML IV SCH ×3 (11:56→23:56)
[2017-05-09] MEDS: DIFLUCAN 100 MG/NS 100 MG/50 ML IVPB IV SCH (19:45)
[2017-05-09] MEDS: PROTONIX IV SCH (20:26)
[2017-05-10] MEDS: ZOSYN 3.375 GM in NS 50 ML IV SCH ×4 (03:30→19:28)
[2017-05-10] MEDS: DUONEB (A & A) INH SCH ×6 (03:31→23:03)
[2017-05-10] MEDS: CLINIMIX E 4.25%-5% SOLUTION 1,000 ML IV SCH ×2 (03:35→17:05)
[2017-05-10] MEDS: CLINDAMYCIN 600 MG/NS 600 MG/50 ML IVPB IV SCH ×3 (03:45→18:30)
[2017-05-10 04:48] LABS: ALLEN TEST YES; BE 13.5 mmoll (-3.0-3.0); BLOOD TYPE ARTERIAL; DRAW SITE R RADIAL; O2(CT) 20.6 mL/dL (15.0-23.0); PCO2(98.6) 50 mmHg (35-45); PO2(98.6) 100 mmHg (60-100); SAMPLE BLOOD; SAO2 98.9 % (95.0-100.0); SRATE 4 BPM; THB 15.2 g/dL (11.5-17.4); TVOL 500 mL
[2017-05-10 04:49] LABS: MODALITY VENTILATOR
[2017-05-10] MEDS: LASIX 160 MG in NS 25 ML IV SCH (05:00)
[2017-05-10 05:20] LABS: HEMATOCRIT 30.6 % (37.0-47.0); HEMOGLOBIN 9.8 g/dL (12.0-16.0); MCH 29.9 PG (27-31); MCV 93.3 FL (81-99); MPV 10.2 FL (7.4-10.4); RBC 3.28 XMIL (4.2-5.4)
[2017-05-10 05:35] LABS: ALBUMIN 2.3 g/dL (3.5-5.0); CALCIUM 8.1 mg/dL (8.8-10.2); POTASSIUM 3.3 mmol/L (3.5-5.1); TOTAL BILIRUBIN 0.4 mg/dL (0.20-1.00)
[2017-05-10] MEDS: LOVENOX SUBQ SCH (08:29)
[2017-05-10] MEDS: PERIDEX MT SCH ×2 (08:29→21:54)
[2017-05-10] MEDS: COMBIGAN OPHTH SOLN BOTH EYES SCH ×2 (08:30→21:54)
[2017-05-10] MEDS: SOLU-CORTEF IV SCH ×2 (09:16→21:54)
[2017-05-10] MEDS: LASIX IV SCH ×2 (09:20→17:04)
[2017-05-10] MEDS: DIFLUCAN 100 MG/NS 100 MG/50 ML IVPB IV SCH (19:29)
[2017-05-10] MEDS: SODIUM CHLORIDE 0.9% INJ SCH (21:53)
[2017-05-10] MEDS: PROTONIX IV SCH (21:54)
[2017-05-11] MEDS: ZOSYN 3.375 GM in NS 50 ML IV SCH ×4 (01:50→19:23)
[2017-05-11] MEDS: LASIX IV SCH ×3 (01:50→18:19)
[2017-05-11] MEDS: DUONEB (A & A) INH SCH ×6 (03:13→22:37)
[2017-05-11] MEDS: CLINDAMYCIN 600 MG/NS 600 MG/50 ML IVPB IV SCH ×3 (03:21→18:29)
[2017-05-11] MEDS: ATIVAN IV PRN (03:24)
[2017-05-11] MEDS: CALMOSEPTINE OINTMENT TOP PRN (03:25)
[2017-05-11 05:03] LABS: ALLEN TEST YES; BE 17.2 mmoll (-3.0-3.0); BLOOD TYPE ARTERIAL; DRAW SITE R RADIAL; METHB 1.7 % (0.0-1.5); O2(CT) 13.1 mL/dL (15.0-23.0); PCO2(98.6) 40 mmHg (35-45); PO2(98.6) 108 mmHg (60-100); SAMPLE BLOOD; SAO2 98.7 % (95.0-100.0); SRATE 4 BPM; THB 9.6 g/dL (11.5-17.4); TVOL 500 mL
[2017-05-11 05:11] LABS: MODALITY VENTILATOR; pH(98.6) 7.61 (7.35-7.45)
[2017-05-11 06:20] LABS: HEMATOCRIT 29.5 % (37.0-47.0); HEMOGLOBIN 9.5 g/dL (12.0-16.0); MCHC 32.2 g/dL (33-37); MCV 93.1 FL (81-99); MPV 10.4 FL (7.4-10.4); RBC 3.17 XMIL (4.2-5.4)
[2017-05-11 06:44] LABS: ALBUMIN 2.5 g/dL (3.5-5.0); CALCIUM 7.9 mg/dL (8.8-10.2); POTASSIUM 3.4 mmol/L (3.5-5.1); TOTAL BILIRUBIN 0.4 mg/dL (0.20-1.00); TOTAL PROTEIN 5.1 g/dL (6.3-8.3)
[2017-05-11] MEDS: POTASSIUM CHLORIDE 20 MEQ/SWI 20 MEQ/100 ML IVPB IV SCH ×2 (07:48→11:11)
[2017-05-11] MEDS: CLINIMIX E 4.25%-5% SOLUTION 1,000 ML IV SCH ×2 (07:48→23:43)
[2017-05-11] MEDS: SOLU-CORTEF IV SCH ×2 (08:00→20:14)
[2017-05-11] MEDS: LOVENOX SUBQ SCH (08:01)
[2017-05-11] MEDS: PERIDEX MT SCH ×2 (08:01→20:16)
[2017-05-11] MEDS: COMBIGAN OPHTH SOLN BOTH EYES SCH ×2 (08:01→20:16)
[2017-05-11] MEDS: DIFLUCAN 100 MG/NS 100 MG/50 ML IVPB IV SCH (19:23)
[2017-05-11] MEDS: PROTONIX IV SCH (20:13)
[2017-05-11] MEDS: ZOFRAN IV PRN (20:14)
[2017-05-11] MEDS: SODIUM CHLORIDE 0.9% INJ SCH (20:14)
[2017-05-11] MEDS: DILAUDID IV PRN (20:14)
[2017-05-12] MEDS: DUONEB (A & A) INH SCH ×6 (03:13→23:20)
[2017-05-12] MEDS: CLINDAMYCIN 600 MG/NS 600 MG/50 ML IVPB IV SCH ×3 (03:34→22:06)
[2017-05-12] MEDS: LASIX IV SCH ×3 (03:34→16:02)
[2017-05-12] MEDS: ZOSYN 3.375 GM in NS 50 ML IV SCH ×4 (03:34→22:01)
[2017-05-12 04:29] LABS: ALLEN TEST YES; BE 11.5 mmoll (-3.0-3.0); BLOOD TYPE ARTERIAL; DRAW SITE R RADIAL; METHB 1.1 % (0.0-1.5); O2(CT) 21.6 mL/dL (15.0-23.0); PO2(98.6) 74 mmHg (60-100); SAMPLE BLOOD; SAO2 96.2 % (95.0-100.0); SRATE 4 BPM; THB 16.5 g/dL (11.5-17.4); TVOL 500 mL; pH(98.6) 7.45 (7.35-7.45)
[2017-05-12 04:30] LABS: MODALITY VENTILATOR; PCO2(98.6) 55 mmHg (35-45)
[2017-05-12 04:59] LABS: HEMATOCRIT 31.1 % (37.0-47.0); HEMOGLOBIN 10.1 g/dL (12.0-16.0); MCH 30.4 PG (27-31); MCHC 32.5 g/dL (33-37); MCV 93.7 FL (81-99); MPV 9.9 FL (7.4-10.4); RBC 3.32 XMIL (4.2-5.4)
[2017-05-12 05:37] LABS: ALBUMIN 2.5 g/dL (3.5-5.0); CALCIUM 8.1 mg/dL (8.8-10.2); POTASSIUM 3.6 mmol/L (3.5-5.1); TOTAL BILIRUBIN 0.31 mg/dL (0.20-1.00)
[2017-05-12] MEDS: LOVENOX SUBQ SCH ×2 (09:00→09:01)
[2017-05-12] MEDS: COMBIGAN OPHTH SOLN BOTH EYES SCH ×2 (09:01→22:06)
[2017-05-12] MEDS: PERIDEX MT SCH ×2 (09:02→21:45)
[2017-05-12] MEDS: SOLU-CORTEF IV SCH ×2 (09:03→22:02)
[2017-05-12] MEDS: CLINIMIX E 4.25%-5% SOLUTION 1,000 ML IV SCH (16:03)
[2017-05-12] MEDS ORDERED: CLINIMIX E 4.25%-5% SOLUTION 1,000 ML IV SCH (16:51)
[2017-05-12] MEDS: ATIVAN IV PRN (17:46)
[2017-05-12] MEDS: DIFLUCAN 100 MG/NS 100 MG/50 ML IVPB IV SCH (22:01)
[2017-05-12] MEDS: PROTONIX IV SCH (22:02)
[2017-05-13] MEDS: ZOSYN 3.375 GM in NS 50 ML IV SCH (02:27)
[2017-05-13] MEDS: DUONEB (A & A) INH SCH ×6 (03:14→23:00)
[2017-05-13 04:58] LABS: ALLEN TEST YES; BE 14.7 mmoll (-3.0-3.0); BLOOD TYPE ARTERIAL; DRAW SITE R RADIAL; METHB 1.7 % (0.0-1.5); O2(CT) 14.9 mL/dL (15.0-23.0); PCO2(98.6) 51 mmHg (35-45); PO2(98.6) 118 mmHg (60-100); SAMPLE BLOOD; SAO2 98.8 % (95.0-100.0); THB 10.9 g/dL (11.5-17.4)
[2017-05-13 04:59] LABS: MODALITY COOL AEROSOL
[2017-05-13 05:11] LABS: HEMATOCRIT 32.1 % (37.0-47.0); HEMOGLOBIN 10.2 g/dL (12.0-16.0); MCH 30.3 PG (27-31); MCHC 31.8 g/dL (33-37); MCV 95.3 FL (81-99); RBC 3.37 XMIL (4.2-5.4)
[2017-05-13] MEDS: CLINDAMYCIN 600 MG/NS 600 MG/50 ML IVPB IV SCH (05:23)
[2017-05-13 05:52] LABS: ALBUMIN 2.6 g/dL (3.5-5.0); CALCIUM 8.3 mg/dL (8.8-10.2); POTASSIUM 3.2 mmol/L (3.5-5.1); TOTAL BILIRUBIN 0.33 mg/dL (0.20-1.00); TOTAL PROTEIN 6.2 g/dL (6.3-8.3)
[2017-05-13] MEDS: LOVENOX SUBQ SCH ×2 (09:25→10:36)
[2017-05-13] MEDS: COMBIGAN OPHTH SOLN BOTH EYES SCH ×2 (09:25→20:28)
[2017-05-13] MEDS: DILAUDID IV PRN (09:35)
[2017-05-14] MEDS: DUONEB (A & A) INH SCH ×6 (02:40→23:27)
[2017-05-14] MEDS ORDERED: MORPHINE IV ONE (09:32)
[2017-05-14] MEDS ORDERED: MORPHINE IV PRN (09:33)
[2017-05-14] MEDS: COMBIGAN OPHTH SOLN BOTH EYES SCH ×2 (10:06→21:20)
[2017-05-14] MEDS: ATROPINE 1% OPHTH SOLN SL PRN (13:58)
[2017-05-14] MEDS: MORPHINE IV PRN (13:58)
[2017-05-15] MEDS: DUONEB (A & A) INH SCH ×6 (03:05→23:42)
[2017-05-15] MEDS: MORPHINE IV PRN ×2 (04:54→15:52)
[2017-05-15] MEDS: ATROPINE 1% OPHTH SOLN SL PRN ×2 (15:52→23:33)
[2017-05-15] MEDS: COMBIGAN OPHTH SOLN BOTH EYES SCH ×2 (16:25→23:31)
[2017-05-16] MEDS: DUONEB (A & A) INH SCH ×6 (03:11→22:53)
[2017-05-16] MEDS: ATROPINE 1% OPHTH SOLN SL PRN ×2 (05:32→09:03)
[2017-05-16] MEDS: COMBIGAN OPHTH SOLN BOTH EYES SCH (09:03)
[2017-05-16] MEDS: MORPHINE IV PRN (18:48)
[2017-05-17] MEDS: DUONEB (A & A) INH SCH ×6 (03:31→23:10)
[2017-05-17] MEDS: COMBIGAN OPHTH SOLN BOTH EYES SCH ×2 (03:36→08:09)
[2017-05-18] MEDS: NS 1,000 ML IV SCH ×3 (02:45→17:40)
[2017-05-18] MEDS: COMBIGAN OPHTH SOLN BOTH EYES SCH ×3 (02:45→20:52)
[2017-05-18] MEDS: DUONEB (A & A) INH SCH ×6 (03:50→23:15)
[2017-05-19] MEDS: NS 1,000 ML IV SCH ×2 (00:15→18:20)
[2017-05-19] MEDS: DUONEB (A & A) INH SCH ×6 (03:15→23:15)
[2017-05-19] MEDS: COMBIGAN OPHTH SOLN BOTH EYES SCH ×2 (10:25→22:06)
[2017-05-20] MEDS: DUONEB (A & A) INH SCH ×6 (03:30→23:16)
[2017-05-20] MEDS: NS 1,000 ML IV SCH ×2 (08:05→14:47)
[2017-05-20] MEDS: COMBIGAN OPHTH SOLN BOTH EYES SCH ×2 (09:11→20:20)
[2017-05-21] MEDS: DUONEB (A & A) INH SCH ×6 (03:02→23:24)
[2017-05-21] MEDS: COMBIGAN OPHTH SOLN BOTH EYES SCH ×2 (09:18→21:14)
[2017-05-21] MEDS: NS 1,000 ML IV SCH ×3 (09:20→21:25)
[2017-05-22 05:20] VITALS: BP 105/68
[2017-05-22] MEDS: DUONEB (A & A) INH SCH (06:26)
== END 2017-05-22 07:00 | disposition expired ==
LOC: 4N 10:46 → ED 10:46 → 4N 17:43 → ICU 04-25 11:05 → 3N 05-13 21:10
PROVIDERS: ADMIT Internal Medicine; ATTEND Internal Medicine